=== PATIENT | male | born 1965 | race Caucasian/White ===

== ENCOUNTER 2018-09-08 22:11 | Emergency (ER) | payer MEDICAID ==
[~2018-09-08] VITALS: Ht 182.9 cm; Wt 90.9 kg
[2018-09-08 22:15] VITALS: Ht 182.9 cm; Wt 90.9 kg
[2018-09-08 22:35] VITALS: BP 116/74
[2018-09-09 01:09] LABS: BASOPHILS 0.9 % (0-2); EOSINOPHILS 2.7 % (0-7); HEMATOCRIT 38.8 % (42.0-54.0); HEMOGLOBIN 13.5 g/dL (13.5-17.5); LYMPHOCYTES 49.9 % (15-50); MCH 31.8 pg (26.0-34.0); MCHC 34.8 g/dL (31.0-37.0); MCV 91.3 fL (80.0-100.0); MEAN PLATELET VOLUME 8.2 fL (7.4-10.4); MONOCYTES 6.9 % (2-11); NEUTROPHILS 39.6 % (40-80); PLATELET COUNT 328 10x3/uL (130-400); RBC 4.25 10x6/uL (4.20-6.10); RDW 13.7 % (11.5-14.5); WBC 4.5 10x3/uL (4.8-10.8)
[2018-09-09 01:30] LABS: ALBUMIN 3.5 g/dL (3.4-5.0); ALKALINE PHOSPHATASE 87 U/L (46-116); ALT (SGPT) 26 U/L (10-68); BILIRUBIN - TOTAL 0.28 mg/dL (0.2-1.3); CALC OSMOLALITY 288 mosm/kg (275-300); CALCIUM 7.5 mg/dL (8.5-10.1); CARBON DIOXIDE 24.3 mmol/L (21.0-32.0); CHLORIDE - SERUM 109 mmol/L (98-107); CREATININE - SERUM 0.6 mg/dL (0.6-1.3); GLUCOSE 94 mg/dL (74-106); PROTEIN - SERUM 7.1 g/dL (6.4-8.2); SODIUM 146 mmol/L (136-145); UREA NITROGEN 7 mg/dL (7-18); eGFR NON AFRICAN AMERICAN > 90 mL/min (90-120)
== END 2018-09-09 03:31 ==
LOC: D.ER 22:11
PROVIDERS: Family Medicine
DX: F10.129 Alcohol abuse with intoxication, unspecified (principal)

== ENCOUNTER 2018-09-10 05:11 | Emergency (ER) | payer MEDICAID ==
[~2018-09-10] VITALS: Ht 182.9 cm; Wt 86.4 kg
[2018-09-10 05:13] VITALS: Ht 182.9 cm; Wt 86.4 kg
[2018-09-10 12:05] VITALS: BP 120/082
== END 2018-09-10 12:08 | disposition home or self-care (01) ==
LOC: D.ER 05:11
DX: F10.129 Alcohol abuse with intoxication, unspecified (principal); F17.200 Nicotine dependence, unspecified, uncomplicated

== ENCOUNTER 2018-09-13 08:08 | Emergency (ER) | payer MEDICAID ==
[2018-09-10 05:13] VITALS: Ht 182.9 cm; Wt 78.6 kg
[~2018-09-13] VITALS: Ht 182.9 cm; Wt 78.6 kg
[2018-09-13 08:51] LABS: BASOPHILS 0.4 % (0-2); EOSINOPHILS 1.2 % (0-7); HEMATOCRIT 41.1 % (42.0-54.0); HEMOGLOBIN 14.6 g/dL (13.5-17.5); IMMATURE GRANULOCYTES 0.1 % (0-5); LYMPHOCYTES 27.2 % (15-50); MCH 32.1 pg (26.0-34.0); MCHC 35.5 g/dL (31.0-37.0); MCV 90.3 fL (80.0-100.0); MEAN PLATELET VOLUME 9.8 fL (7.4-10.4); MONOCYTES 8.6 % (2-11); NEUTROPHILS 62.5 % (40-80); PLATELET COUNT 457 10x3/uL (130-400); RBC 4.55 10x6/uL (4.20-6.10); RDW 13.8 % (11.5-14.5); WBC 8.5 10x3/uL (4.8-10.8)
[2018-09-13 08:57] LABS: APPEARANCE SL CLDY (CLEAR); BACTERIA FEW /hpf (NONE SEEN); BILIRUBIN NEGATIVE (NEGATIVE); COLOR YELLOW (YELLOW); EPITHELIAL CELLS RARE /hpf (0-5); GLUCOSE NEGATIVE (NEGATIVE); KETONE SMALL mg/dL (NEGATIVE); NITRITE NEGATIVE (NEGATIVE); PROTEIN NEGATIVE (NEGATIVE); RED CELLS - URINE 0-5 /hpf (0-5); SPECIFIC GRAVITY 1.005 (1.005-1.020); WHITE CELLS - URINE OCC /hpf (0-5)
[2018-09-13 08:58] LABS: AMORPHOUS SEDIMENT <1+ /lpf (NONE SEEN); MUCUS <1+ /lpf (NONE SEEN)
[2018-09-13 09:11] LABS: ALBUMIN 3.7 g/dL (3.4-5.0); ALKALINE PHOSPHATASE 104 U/L (46-116); ALT (SGPT) 34 U/L (10-68); CALC OSMOLALITY 268 mosm/kg (275-300); CALCIUM 8.8 mg/dL (8.5-10.1); CARBON DIOXIDE 26.6 mmol/L (21.0-32.0); CHLORIDE - SERUM 99 mmol/L (98-107); CREATININE - SERUM 0.7 mg/dL (0.6-1.3); GLUCOSE 94 mg/dL (74-106); POTASSIUM - SERUM 3.9 mmol/L (3.5-5.1); PROTEIN - SERUM 7.6 g/dL (6.4-8.2); SODIUM 135 mmol/L (136-145); UREA NITROGEN 11 mg/dL (7-18); eGFR NON AFRICAN AMERICAN > 90 mL/min (90-120)
[2018-09-13 09:13] LABS: AMYLASE - SERUM 38 U/L (25-115); LIPASE 301 U/L (73-393); TROPONIN-I < 0.017 ng/mL (0.000-0.060)
[2018-09-13] MEDS ORDERED: IBUPROFEN800 MG PO (09:45)
[2018-09-13] MEDS ORDERED: ACETAMINOPHEN500 M1 PO (09:45)
[2018-09-13] MEDS ORDERED: CYCLOBENZAPRINE10 MG PO (09:45)
[2018-09-13 09:54] VITALS: BP 134/89
== END 2018-09-13 09:56 | disposition home or self-care (01) ==
LOC: D.ER 08:08
PROVIDERS: Family Medicine
DX: M16.11 Unilateral primary osteoarthritis, right hip (principal); M62.830 Muscle spasm of back; M54.5 Low back pain; F17.200 Nicotine dependence, unspecified, uncomplicated